=== PATIENT | male | born 1965 | race Caucasian/White ===

== ENCOUNTER 2020-04-24 10:58 | Inpatient (IN) | payer SELFPAY ==
[~2020-04-24] VITALS: Ht 177.8 cm; Wt 83.2 kg
[~2020-04-24 10:58] MED LIST: AMBIEN10 MG PO; ARTHROTEC EC 71 EACH PO; ATORVASTATIN CA20 MG PO; CELEBREX100 MG PO; CLONAZEPAM1 MG PO; HYDROCODON-ACE1 EA11 PO; KOMBIGLYZE XR1 EACH PO; LISINOPRIL20 MG PO; METFORMIN HCL500 MG PO; ULTRAM 50MG50 MG PO; WELLBUTRIN XL150 MG PO
[2020-04-24] MEDS ORDERED: FAMOTIDINE 20 MG/2 ML VIAL IV NR (11:46)
[2020-04-24] MEDS ORDERED: SODIUM CHLORIDE 0.9% 1000ML 1,000 ML ONE (11:52)
[2020-04-24] MEDS ORDERED: FAMOTIDINE 20 MG/2 ML VIAL IV ONE (11:53)
[2020-04-24] MEDS ORDERED: IOPAMIDOL 370 MG/ML 200 ML INFUS..BTL INJ ONE (11:54)
[2020-04-24] MEDS ORDERED: SODIUM CHLORIDE 0.9% 50ML 50 ML ONE (11:54)
[2020-04-24] MEDS ORDERED: SODIUM CHLORIDE 0.9% 1000ML 1,000 ML IV SCH (12:00)
[2020-04-24] MEDS ORDERED: MORPHINE SULFATE 2 MG/ML SYR 1ML IV STA (13:53)
[2020-04-24] MEDS ORDERED: ONDANSETRON HCL INJ 2MG/ML 2ML 2 MG/ML VIAL IV STA (13:53)
[2020-04-24] MEDS ORDERED: MORPHINE SULFATE INJ 4 MG/ML INJ 1ML ONE (14:02)
[2020-04-24] MEDS ORDERED: CEFTRIAXONE SOD 1 GM/NS 50 ML 50 ML IV ONE ×2 (14:45→16:36)
[2020-04-24] MEDS ORDERED: ONDANSETRON HCL INJ 2MG/ML 2ML 2 MG/ML VIAL IV PRN ×2 (15:30→18:00)
[2020-04-24] MEDS ORDERED: SODIUM CHLORIDE FLUSH 10 ML SYR INJ PRN (15:30)
[2020-04-24] MEDS: SODIUM CHLORIDE 0.9% 1000ML 1,000 ML IV SCH (15:30)
[2020-04-24] MEDS ORDERED: MORPHINE SULFATE 2 MG/ML SYR 1ML IV PRN (15:30)
[2020-04-24] MEDS ORDERED: HYDRALAZINE HCL 20 MG/ML VIAL IV PRN ×2 (15:45→18:00)
[2020-04-24 18:00] VITALS: BP 181/103
[2020-04-24] MEDS ORDERED: CHLORASEPTIC SPRAY 177 ML BTL MM PRN (18:00)
[2020-04-24] MEDS ORDERED: POTASSIUM CHLORIDE 20 MEQ TAB CR PO PRN (18:00)
[2020-04-24] MEDS ORDERED: POLYETHYLENE GLYCOL 3350 17 GM PACK PO PRN (18:00)
[2020-04-24] MEDS ORDERED: BENZONATATE 100 MG CAP PO PRN (18:00)
[2020-04-24] MEDS ORDERED: ACETAMINOPHEN 325 MG TAB PO PRN (18:00)
[2020-04-24] MEDS ORDERED: MELATONIN 5 MG TABLET PO PRN (18:00)
[2020-04-24] MEDS ORDERED: GUAIFENESIN/CODEINE 10 ML CUP PO PRN (18:00)
[2020-04-24] MEDS ORDERED: DIPHENHYDRAMINE HCL 25 MG CAP PO PRN (18:00)
[2020-04-24] MEDS ORDERED: SIMETHICONE 80 MG CHEW PO PRN (18:00)
[2020-04-24] MEDS ORDERED: ALBUTEROL/IPRATROPIUM 3 ML NEB NEB PRN (18:00)
[2020-04-24] MEDS ORDERED: DOCUSATE SODIUM 100 MG CAP PO PRN (18:00)
[2020-04-24 18:36] VITALS: BP 181/103
[2020-04-24 20:00] VITALS: BP 169/94
[2020-04-24] MEDS: HYDROCODONE/APAP 5MG-325MG TAB PO PRN (20:08)
[2020-04-24 20:41] VITALS: BP 169/94
[2020-04-24] MEDS: LOSARTAN POTASSIUM 100 MG TAB PO SCH (23:20)
[2020-04-25] VITALS (7 sets, daily range): BP systolic 143–173; BP diastolic 74–91
[2020-04-25 00:07] LABS: BASOPHILS # (AUTO) 0.1 (0.0-0.1); BASOPHILS % 1.2 % (0.0-1.0); EOSINOPHILS # (AUTO) 0.3 (0.0-0.4); HEMOGLOBIN 13.4 g/dL (14.0-18.0); LYMPHOCYTES # (AUTO) 2.1 (1.0-3.2); LYMPHOCYTES % 18.7 % (18.0-39.1); MEAN CORPUSCULAR HEMOGLOBIN 29.6 pg (28-32); MEAN CORPUSCULAR HGB CONC 32.7 g/dL (31-35); MEAN CORPUSCULAR VOLUME 90.5 fL (81-99); MONOCYTES # (AUTO) 1.2 (0.2-0.8); MONOCYTES % 10.7 % (4.4-11.3); NEUTROPHILS # (AUTO) 7.3 (2.1-6.9); NEUTROPHILS % 65.8 % (38.7-80.0); PLATELET COUNT 309 x10e3/uL (140-360); RED BLOOD COUNT 4.53 x10e6/uL (4.3-5.7)
[2020-04-25 00:22] LABS: ALANINE AMINOTRANSFERASE 21 IU/L (0-55); ALBUMIN 2.5 g/dL (3.5-5.0); ALBUMIN/GLOBULIN RATIO 0.8 (0.8-2.0); ALKALINE PHOSPHATASE 257 IU/L (40-150); ANION GAP 13.7 mmol/L (8-16); BLOOD UREA NITROGEN 18 mg/dL (7-26); BUN/CREATININE RATIO 23 (6-25); CALCIUM 7.9 mg/dL (8.4-10.2); CARBON DIOXIDE 25 mmol/L (22-29); CHLORIDE 102 mmol/L (98-107); CREATININE, SERUM 0.79 mg/dL (0.72-1.25); EST GLOMERULAR FILTRATION RATE > 60 ML/MIN (60-); GLUCOSE 100 mg/dL (74-118); POTASSIUM 3.7 mmol/L (3.5-5.1); SODIUM 137 mmol/L (136-145)
[2020-04-25] MEDS: SODIUM CHLORIDE 0.9% 1000ML 1,000 ML IV SCH (01:26)
[2020-04-25] MEDS: PANTOPRAZOLE 40 MG 10ML VIAL IV SCH ×2 (03:10→16:03)
[2020-04-25 06:59] LABS: MAGNESIUM 1.7 MG/DL (1.3-2.1); PHOSPHORUS 3.2 MG/DL (2.3-4.7)
[2020-04-25 07:07] LABS: BASOPHILS # (AUTO) 0.1 (0.0-0.1); BASOPHILS % 0.9 % (0.0-1.0); EOSINOPHILS # (AUTO) 0.4 (0.0-0.4); EOSINOPHILS % 3.5 % (0.0-6.0); HEMATOCRIT 41.8 % (38.2-49.6); HEMOGLOBIN 13.8 g/dL (14.0-18.0); LYMPHOCYTES # (AUTO) 1.8 (1.0-3.2); LYMPHOCYTES % 16.3 % (18.0-39.1); MEAN CORPUSCULAR VOLUME 90.9 fL (81-99); MONOCYTES # (AUTO) 1.1 (0.2-0.8); MONOCYTES % 9.6 % (4.4-11.3); NEUTROPHILS # (AUTO) 7.6 (2.1-6.9); NEUTROPHILS % 68.8 % (38.7-80.0); PLATELET COUNT 311 x10e3/uL (140-360); RED CELL DISTRIBUTION WIDTH 14.1 % (11.7-14.4)
[2020-04-25 07:18] LABS: ALANINE AMINOTRANSFERASE 20 IU/L (0-55); ALBUMIN 2.6 g/dL (3.5-5.0); ALBUMIN/GLOBULIN RATIO 0.9 (0.8-2.0); ALKALINE PHOSPHATASE 256 IU/L (40-150); ANION GAP 12.1 mmol/L (8-16); BLOOD UREA NITROGEN 16 mg/dL (7-26); BUN/CREATININE RATIO 23 (6-25); CALCIUM 7.9 mg/dL (8.4-10.2); CARBON DIOXIDE 26 mmol/L (22-29); CHLORIDE 102 mmol/L (98-107); EST GLOMERULAR FILTRATION RATE > 60 ML/MIN (60-); GLUCOSE 77 mg/dL (74-118); POTASSIUM 4.1 mmol/L (3.5-5.1); SODIUM 136 mmol/L (136-145)
[2020-04-25] MEDS ORDERED: PANTOPRAZOLE SOD 40 MG TABEC PO SCH (07:30)
[2020-04-25] MEDS: CEFTRIAXONE SOD 1 GM/NS 50 ML 50 ML IV SCH (09:33)
[2020-04-25] MEDS: LOSARTAN POTASSIUM 100 MG TAB PO SCH (09:34)
[2020-04-25] MEDS: HYDROCODONE/APAP 5MG-325MG TAB PO PRN ×2 (12:10→18:30)
[2020-04-25] MEDS: ENOXAPARIN SOD INJ 40 MG/0.4 ML SYR SC SCH (16:03)
[2020-04-26] VITALS (8 sets, daily range): BP systolic 153–168; BP diastolic 81–99
[2020-04-26] MEDS: PANTOPRAZOLE 40 MG 10ML VIAL IV SCH ×2 (04:28→16:20)
[2020-04-26] MEDS: CEFTRIAXONE SOD 1 GM/NS 50 ML 50 ML IV SCH (09:50)
[2020-04-26] MEDS ORDERED: LIDOCAINE HCL 2% LOCAL INJ 5 ML SDV VIAL INJ ONE (13:38)
[2020-04-26] MEDS ORDERED: PROPOFOL IV EMULSION 10 MG/ML 20 ML VIAL ONE (13:38)
[2020-04-26] MEDS ORDERED: METOCLOPRAMIDE HCL 10 MG/2ML VIAL ONE (13:38)
[2020-04-26] MEDS: LOSARTAN POTASSIUM 100 MG TAB PO SCH (16:20)
[2020-04-26] MEDS: ENOXAPARIN SOD INJ 40 MG/0.4 ML SYR SC SCH (17:00)
[2020-04-26] MEDS: HYDROCODONE/APAP 5MG-325MG TAB PO PRN (19:50)
[2020-04-27] VITALS (8 sets, daily range): BP systolic 135–180; BP diastolic 80–95
[2020-04-27] MEDS: PANTOPRAZOLE 40 MG 10ML VIAL IV SCH ×2 (04:46→17:23)
[2020-04-27 05:13] LABS: BASOPHILS # (AUTO) 0.1 (0.0-0.1); BASOPHILS % 0.8 % (0.0-1.0); EOSINOPHILS # (AUTO) 0.4 (0.0-0.4); EOSINOPHILS % 3.2 % (0.0-6.0); HEMATOCRIT 43.2 % (38.2-49.6); HEMOGLOBIN 14.3 g/dL (14.0-18.0); LYMPHOCYTES # (AUTO) 1.7 (1.0-3.2); LYMPHOCYTES % 14.3 % (18.0-39.1); MEAN CORPUSCULAR HEMOGLOBIN 29.6 pg (28-32); MEAN CORPUSCULAR HGB CONC 33.1 g/dL (31-35); MEAN CORPUSCULAR VOLUME 89.4 fL (81-99); MONOCYTES # (AUTO) 1.2 (0.2-0.8); MONOCYTES % 9.9 % (4.4-11.3); NEUTROPHILS # (AUTO) 8.3 (2.1-6.9); NEUTROPHILS % 71.1 % (38.7-80.0); PLATELET COUNT 295 x10e3/uL (140-360); RED BLOOD COUNT 4.83 x10e6/uL (4.3-5.7)
[2020-04-27 05:50] LABS: ALANINE AMINOTRANSFERASE 22 IU/L (0-55); ALBUMIN 2.7 g/dL (3.5-5.0); ALBUMIN/GLOBULIN RATIO 0.8 (0.8-2.0); ALKALINE PHOSPHATASE 343 IU/L (40-150); ANION GAP 16.2 mmol/L (8-16); BLOOD UREA NITROGEN 11 mg/dL (7-26); BUN/CREATININE RATIO 15 (6-25); CALCIUM 8.3 mg/dL (8.4-10.2); CARBON DIOXIDE 27 mmol/L (22-29); CHLORIDE 97 mmol/L (98-107); CREATININE, SERUM 0.72 mg/dL (0.72-1.25); EST GLOMERULAR FILTRATION RATE > 60 ML/MIN (60-); GLUCOSE 80 mg/dL (74-118); POTASSIUM 4.2 mmol/L (3.5-5.1); SODIUM 136 mmol/L (136-145)
[2020-04-27] MEDS: CEFTRIAXONE SOD 1 GM/NS 50 ML 50 ML IV SCH (08:07)
[2020-04-27] MEDS: LOSARTAN POTASSIUM 100 MG TAB PO SCH ×2 (08:07→17:23)
[2020-04-27] MEDS: MORPHINE SULFATE INJ 4 MG/ML INJ 1ML IV PRN ×2 (08:58→17:24)
[2020-04-27] MEDS: LIDOCAINE 4% PATCH TP PRN (09:01)
[2020-04-27] MEDS: ENOXAPARIN SOD INJ 40 MG/0.4 ML SYR SC SCH (17:23)
[2020-04-28] VITALS: BP 150/87
[2020-04-28] MEDS: PANTOPRAZOLE 40 MG 10ML VIAL IV SCH (03:15)
[2020-04-28 06:00] VITALS: BP 163/103
[2020-04-28] MEDS: LOSARTAN POTASSIUM 100 MG TAB PO SCH (08:19)
[2020-04-28] MEDS: CEFTRIAXONE SOD 1 GM/NS 50 ML 50 ML IV SCH (08:20)
[2020-04-28 08:43] VITALS: BP 167/99
[2020-04-28 08:57] VITALS: BP 167/99
[2020-04-28] MEDS: LIDOCAINE 4% PATCH TP PRN (09:29)
[2020-04-28] MEDS ORDERED: CARVEDILOL 3.125 MG TAB PO SCH (11:15)
[2020-04-28 13:11] VITALS: BP 166/93
== END 2020-04-28 12:08 | disposition home or self-care (01) | DRG 375 ==
LOC: FSED 11:29 → ERHOLD 15:47 → MED/SURG3 17:22 → OBSVTOIN 04-26 08:49
PROVIDERS: ADMIT Internal Medicine; ATTEND Internal Medicine
PROC: 0DB58ZX Excision of Esophagus, Via Natural or Artificial Opening Endoscopic, Diagnostic (ICD-10-PCS; principal; 2020-04-26 14:01)
DX: C78.89 Secondary malignant neoplasm of other digestive organs (principal); C78.00 Secondary malignant neoplasm of unspecified lung; C80.1 Malignant (primary) neoplasm, unspecified; C78.7 Secondary malignant neoplasm of liver and intrahepatic bile duct; G89.3 Neoplasm related pain (acute) (chronic); I10 Essential (primary) hypertension; R13.10 Dysphagia, unspecified; I95.9 Hypotension, unspecified; R13.19 Other dysphagia; E11.9 Type 2 diabetes mellitus without complications; Z20.828 Contact with and (suspected) exposure to other viral communicable diseases
CPT/HCPCS: 36415; 43239; 71260; 74177; 80048; 80053; 80076; 81003; 82105; 82378; 82553; 82948; 83735; 84100; 84484; 85025; 87086; 88305; 88331; 93005; 96374; 96375; 99284; G0378; J0360; J0696; J1650; J2001; J2270; J2405; J2765; J7030; Q9967; U0002